=== PATIENT | male | born 1950 | race Caucasian/White ===

== ENCOUNTER 2022-06-25 10:55 | Emergency (ER) | payer MEDICARE ==
[~2022-06-25] VITALS: Ht 167.6 cm; Wt 90.7 kg
--- NOTE | 2022-06-25 11:01 | NUR ---
BIBRA 89 TA WAS T-BONED ON [address] +SB +AB NO LOC AMBULATORY. PT STATED THAT SHE IS FEELING DIZZY. VITALS ARE WITHIN NORMAL LIMITS. AWAITING MD ORDERS.
--- NOTE | 2022-06-25 11:13 | NUR ---
SEEN AND EXAMINED BY DR CAM
[2022-06-25] MEDS ORDERED: ACETAMINOPHEN ES 500 MG TABLET ONE (12:28)
[2022-06-25] MEDS ORDERED: ACETAMINOPHEN ES 500 MG TABLET PO ONE (12:30)
--- NOTE | 2022-06-25 12:53 | NUR ---
Patient discharged to home in stable condition. Written and verbal after care instructions given. Patient verbalizes understanding of instruction.
[2022-06-25 12:54] VITALS: BP 136/90
== END 2022-06-25 12:54 | disposition home or self-care (01) ==
LOC: ER 11:53
DX: R42 Dizziness and giddiness (principal); M79.605 Pain in left leg; M25.522 Pain in left elbow; I10 Essential (primary) hypertension
CPT/HCPCS: 70450-TC; 72170-TC; 73070-TC; 73552